=== PATIENT | female | born 1975 | race Caucasian/White ===

== ENCOUNTER → 2016-06-07 | Outpatient (CLI) | payer SELFPAY ==
[~2016-06-07] MED LIST: COUMADIN7.5 MG PO; FLAGYL-DPS500 MG PO; GLUCOPHAGE-DPS500 MG PO; PEPCID DPS20 MG PO
--- NOTE | 2016-06-16 14:29 | SS ---
ADMIT: 06/07/2016 RM/LOC: [facility] MR#: [id number] [address] [facility] [address] [place], [place] [id number] [place] [address] [address] Sleep Study SEX: F AGE: 41 : 1975 STUDY DATE: 06/07/2016 CLINICAL HISTORY: A 41-year-old female, body mass 44.4, 58 inches tall, 212 pounds, who has symptoms of daytime sleepiness, snoring, witnessed apneas, [place] Sleepiness 13, in the sleep lab for evaluation of obstructive sleep apnea. TECHNICAL DESCRIPTION: Split-night polysomnogram performed on 06/07/2016, attended by a trained architectural technologist. DIAGNOSTIC POLYSOMNOGRAM FINDINGS: SLEEP: Total time in bed is 142 minutes, total sleep time is 129 minutes, sleep efficiency 90.8%. 77.6% hours was spent in stage II sleep, 12.1% time was spent in stage REM. BREATHING: Severe obstructive sleep apnea with apnea-hypopnea index of 139.5. During the study, there were 1 central apnea, 299 obstructive hypopneas noted. OXYGEN SATURATION: Low baseline oxygen saturation 73%. Lowest oxygen 55%, 58.5% time was spent saturating 72% to 79%. 26% hour was spent saturating 62% to 69%. CARDIAC: Average heart rate is 88 beats per minute. MOVEMENTS/POSITION: During the study, the patient slept in the supine lateral position with no significant leg movements. CPAP TITRATION FINDINGS: TITRATION DESCRIPTION: The patient was titrated from 5 cm CPAP to 17 cm of CPAP. A small Mirage Quattro mask was used as CPAP interface. SLEEP: Total time in bed on CPAP is 329 minutes, total sleep time is 324 minutes. Sleep efficiency is 98.3%. 52.6% hours spent in stage II sleep, 44.5% time was spent in stage REM consistent with REM rebound. BREATHING: Excellent resolution of obstructive sleep apnea was seen at CPAP 17 cm. The patient was seen in REM sleep in supine and in lateral position with near complete resolution of obstructive events. OXYGEN SATURATION: Mean sleeping oxygen saturation at the ending pressure of 17 cm is 96%. ADMIT: 06/07/2016 RM/LOC: [facility] MR#: [id number] [id number] [place], [place] [address] [address] [facility] [place] [address] Sleep Study SEX: F AGE: 41 : 1975 CARDIAC: Average heart rate is 81 beats per minute. MOVEMENTS/POSITION: During the study, the patient slept in the supine lateral position with a periodic leg movement index of 14.8. IMPRESSION AND PLAN: Severe obstructive sleep apnea with apnea-hypopnea of 139.5. Recommend using CPAP 17 cm mask as mentioned above. Recommend losing weight. Recommend avoiding sedative or alcohol. Recommend refrain from driving if excessively sleepy. Recommend avoiding sleeping in supine position. Clinical correlation needed. CPAP compliance followup is recommended. Jorge Hicks MD/ jose luis JOB #: [id number] CC: Prasad Grullon MD, Attending Physician . [facility], Family Physician
== END | disposition home or self-care (01) ==
LOC: RESC 20:39
DX: G47.33 Obstructive sleep apnea (adult) (pediatric) (principal); R09.02 Hypoxemia; I26.99 Other pulmonary embolism without acute cor pulmonale; J45.909 Unspecified asthma, uncomplicated; E11.9 Type 2 diabetes mellitus without complications; R19.7 Diarrhea, unspecified; E66.9 Obesity, unspecified

== ENCOUNTER 2016-08-28 21:59 | Emergency (ER) | payer SELFPAY ==
--- NOTE | 2016-08-29 07:20 | ER ---
ADMIT: 08/28/2016 RM/LOC: ER [facility] MR#: [id number] [address] [facility] [address] [place], [place] [address] [address] [address] Emergency Room Report SEX: F AGE: 41 : 1975 DATE: 08/28/2016 The patient is a 41-year-old female, 12, para 12, currently with IUD, complains of right flank pain associated with dysuria for the past 2 weeks. Denies any fevers, chills, vomiting, or diarrhea. Does admit to increase leukorrhea. Exam remarkable for morbidly obese, nontoxic, afebrile female, slightly tender right flank CVA region. Bimanual pelvic shows increased leukorrhea, string quite short easily removed IUD without difficulty. CT confirmed nearly perforated right arm of the IUD. No evidence of kidney stones. Urine did show 3+ leukorrhea, 42 wbc's, 116 rbc's, 2+ blood, 8 squamous cells likely contaminated from excessive vaginal leukorrhea. WBC 11.8, lactic 2.0, CRP 2.39, potassium 3.3. HCG negative. Lipase negative. The patient was covered with Rocephin 1 g IV piggyback in department. Discharged with Bactrim double strength b.i.d. #20; Pyridium 200 mg t.i.d., #10. Follow up with [facility] completion of antibiotics. Albert Truong MD/ jose luis JOB #: [id number] CC: Albert Truong MD, Attending Physician . [facility] Donovan Freedman MD
== END 2016-08-29 01:35 | disposition home or self-care (01) ==
LOC: ER 21:59
DX: N30.90 Cystitis, unspecified without hematuria (principal); E11.9 Type 2 diabetes mellitus without complications; Z90.49 Acquired absence of other specified parts of digestive tract